=== PATIENT | female | born 1990 | race Caucasian/White ===

== ENCOUNTER 2018-12-13 22:49 | Inpatient (IN) | payer OTHER ==
[~2018-12-13] VITALS: Ht 175.3 cm; Wt 92.3 kg
[2018-12-13 23:07] VITALS: Ht 175.3 cm; Wt 92.3 kg
[2018-12-14 00:54] LABS: PLATELET COUNT 263 x10^3mcL (130-400); RED CELL DISTRIBUTION WIDTH 12.6 % (11.5-14.5)
[2018-12-14 01:20] LABS: T3 TOTAL 1.43 ng/mL
[2018-12-14 01:23] LABS: CK-MB 0.9 ng/mL (0-3.6)
[2018-12-14 01:43] LABS: ERYTHROCYTE SED RATE 31 mm/hr (0-20)
[2018-12-14 02:11] LABS: CARBON DIOXIDE 26.7 mmol/L (21-32); CHLORIDE SERUM 97 mmol/L (98-107); GLUCOSE SERUM 375 mg/dL (74-106); POTASSIUM SERUM 3.8 mmol/L (3.5-5.1); SODIUM SERUM 133 mmol/L (136-145)
[2018-12-14 02:12] LABS: CREATININE SERUM 0.6 mg/dL (0.6-1.0); GFR1 > 60 mL/min
[2018-12-14 02:19] LABS: ALBUMIN 3.1 g/dL (3.4-5.0); CALCIUM 8.7 mg/dL (8.5-10.1); TOTAL PROTEIN, SERUM 7.1 g/dL (6.4-8.2)
[2018-12-14 02:20] LABS: ALKALINE PHOSPHATASE 85 U/L (46-116); ALT/SGPT 17 U/L (14-59); AST/SGOT 10 U/L (15-37); BILIRUBIN TOTAL 0.4 mg/dL (0.20-1.00)
[2018-12-14 02:26] LABS: FREE T4 1.32 ng/dL (0.76-1.46); T4(THYROXINE) 7.9 ug/dL (4.7-13.3)
[2018-12-14 02:35] LABS: microscopic required? YES; urine erythrocyte TRACE (NEGATIVE)
[2018-12-14 03:07] LABS: AMPHETAMINE QUAL UR NONE DETECTED (See below)
[2018-12-14 03:09] LABS: CHOLESTEROL/HDL RATIO 4.2; MAGNESIUM 1.6 mg/dL (1.8-2.4); PHOSPHOROUS 4.5 mg/dL (2.5-4.9)
[2018-12-14 03:10] VITALS: BP 120/78
[2018-12-14 05:44] VITALS: BP 112/69
[2018-12-14 06:54] LABS: BASOPHIL % 0.4 % (0-2); PLATELET COUNT 225 x10^3mcL (130-400); RED CELL DISTRIBUTION WIDTH 13.8 % (11.5-14.5)
[2018-12-14 07:01] LABS: CALCIUM 8.3 mg/dL (8.5-10.1); CARBON DIOXIDE 26.6 mmol/L (21-32); CHLORIDE SERUM 100 mmol/L (98-107); CREATININE SERUM 0.5 mg/dL (0.6-1.0); GFR1 > 60 mL/min; GLUCOSE SERUM 293 mg/dL (74-106); MAGNESIUM 1.7 mg/dL (1.8-2.4); POTASSIUM SERUM 4.1 mmol/L (3.5-5.1); SODIUM SERUM 133 mmol/L (136-145)
[2018-12-14] MEDS ORDERED: AMOX/CLAV POT1 TAB PO (08:20)
[2018-12-14 08:45] VITALS: BP 100/59
[2018-12-14] MEDS ORDERED: METFORMIN HCL1000 MG PO (14:02)
[2018-12-14] MEDS ORDERED: GLYBURIDE5 MG PO (14:02)
[2018-12-14 14:34] VITALS: BP 100/59
== END 2018-12-14 18:21 | disposition home or self-care (01) | DRG 602 ==
LOC: ED 22:49 → MU 12-14 00:25
PROVIDERS: Specialist; ADMIT Family Medicine
PROC: 0Y990ZZ Drainage of Right Lower Extremity, Open Approach (ICD-10-PCS; principal; 2018-12-14)
DX: L03.115 Cellulitis of right lower limb (principal); N17.0 Acute kidney failure with tubular necrosis; E87.1 Hypo-osmolality and hyponatremia; L02.415 Cutaneous abscess of right lower limb; E11.65 Type 2 diabetes mellitus with hyperglycemia; E02 Subclinical iodine-deficiency hypothyroidism; F12.10 Cannabis abuse, uncomplicated; Z68.30 Body mass index [BMI] 30.0-30.9, adult; Z91.14 Patient's other noncompliance with medication regimen; Z23 Encounter for immunization
CPT/HCPCS: 82962; 84439; 90715; J0696; J1815; J2001; J2405; J2543; J3010; J7030